=== PATIENT | female | born 1970 | race Caucasian/White ===

== ENCOUNTER 2017-04-18 19:41 | Emergency (ER) | payer OTHER ==
[~2017-04-18] VITALS: Ht 162.6 cm; Wt 57.7 kg
[~2017-04-18 19:41] MED LIST: BENZ100 PO; TUSSSUS2 PO
[2017-04-18 19:49] VITALS: BP 185/113; PULSE 83; RESP 15; TEMP 98.7; O2SAT 98
--- NOTE | 2017-04-18 20:12 | PD ---
Physical Exam Time Seen by Provider: 20:10 Narrative 47yo F c/o high blood pressure times a couple weeks with highest reading today. Left sided cheat pain since last night-constant. Denies SOB, DECKER, blurred vision, and diaphoresis. Not on BP meds. Patient seen in triage. VS reviewed. Awaiting bed placement. Data Data Last Documented VS Vital Signs Date Time Temp Pulse Resp B/P (MAP) Pulse Ox O2 Delivery O2 Flow Rate FiO2 04/18/17 19:49 98.7 83 15 185/113 (137) 98 Room Air MDM Supervised Visit with NAN: Cadence Houston Apr 18, 2017 20:12
[2017-04-18] MEDS ORDERED: RAMIPRIL 5 MG CAP PO ONE (20:30)
[2017-04-18] MEDS ORDERED: ASPIRIN 81 MG CHEW TAB PO ONE (20:30)
[2017-04-18] MEDS ORDERED: SODIUM CHLORIDE 0.9% FLUSH 10 ML FLUSH IVF PRN (20:30)
[2017-04-18 20:33] VITALS: BP_SYST 162; BP_SYST 178; BP_DIAS 94; BP_DIAS 96; PULSE 81; RESP 18; O2SAT 98
[2017-04-18 20:34] VITALS: O2SAT 98
--- NOTE | 2017-04-18 20:38 | PD ---
HPI Chief Complaint: Hypertension Time Seen by Provider: 20:13 Travel History International Travel<30 days: No Contact w/Intl Traveler<30days: No Traveled to known affect area: No History of Present Illness HPI The patient is a 47-year-old female who presents to the emergency department for elevated blood pressure. The patient states she has a history of hypertension, loss 13% body fat several years ago and subsequently went off of her medication at that time, Altace 10 mg. However, the last several weeks the patient has had intermittent headaches, generalized not feeling well, intermittent left-sided chest dullness, and turgor blood pressure earlier today which was elevated. The patient has an appointment in the beginning of April with her primary physician, Dr. Stephens. The patient denies any current headache, shortness breath, nausea, vomiting, or diaphoresis. She does complain of constant left-sided chest ache since last night which has been constant, not worse with exertion. She denies any known history of coronary artery disease. PFSH Past Medical History Narrative Medical Hypertension Past Surgical History Narrative Surgical Tubal ligation, uterine ablation Social History Tobacco Use: No Allergies-Medications (Allergen,Severity, Reaction): Coded Allergies: ciprofloxacin (Verified Allergy, Mild, makes patient sick, 04/18/17) Reported Meds & Prescriptions Reported Meds & Active Scripts Active No Active Prescriptions or Reported Medications Review of Systems Except as stated in HPI: all other systems reviewed are Neg HENT: Positive: Headaches, Lightheadedness Cardiovascular: Positive: Chest Pain or Discomfort Respiratory: No: Shortness of Breath Gastrointestinal: No: Nausea, Vomiting, Abdominal Pain Musculoskeletal: Positive: Weakness Neurologic: No: Dizziness Physical Exam Narrative GENERAL: Awake, alert, very pleasant 27 year-old female who appears her stated age is in no acute respiratory distress. SKIN: Focused skin assessment warm/dry. HEAD: Atraumatic. Normocephalic. EYES: Pupils equal and round. No scleral icterus. No injection or drainage. ENT: No nasal bleeding or discharge. Mucous membranes pink and moist. NECK: Trachea midline. No JVD. CARDIOVASCULAR: Regular rate and rhythm. No murmur appreciated. RESPIRATORY: No accessory muscle use. Clear to auscultation. Breath sounds equal bilaterally. GASTROINTESTINAL: Abdomen soft, non-tender, nondistended. MUSCULOSKELETAL: No obvious deformities. No clubbing. No cyanosis. No edema. NEUROLOGICAL: Awake and alert. No obvious cranial nerve deficits. Motor grossly within normal limits. Normal speech. Nonfocal. Oriented 4. Follows commands without difficulty. PSYCHIATRIC: Appropriate mood and affect; insight and judgment normal. Data Data Last Documented VS Vital Signs Date Time Temp Pulse Resp B/P (MAP) Pulse Ox O2 Delivery O2 Flow Rate FiO2 04/18/17 21:42 79 18 150/87 (108) 97 Room Air 04/18/17 19:49 98.7 Orders Orders Electrocardiogram (04/18/17 20:25) Ckmb (Isoenzyme) Profile (04/18/17 20:25) Complete Blood Count With Diff (04/18/17 20:25) Comprehensive Metabolic Panel (04/18/17 20:25) Troponin I (04/18/17 20:25) Ecg Monitoring (04/18/17 20:25) Bilateral Bp Monitoring (04/18/17 20:25) Iv Access Insert/Monitor (04/18/17 20:25) Oximetry (04/18/17 20:25) Oxygen Administration (04/18/17 20:25) Aspirin Chew (Aspirin Chew) (04/18/17 20:30) Sodium Chloride 0.9% Flush (Ns Flush) (04/18/17 20:30) Ramipril (Altace) (04/18/17 20:30) Labs Laboratory Tests Test 04/18/17 20:30 White Blood Count 7.7 TH/MM3 Red Blood Count 4.66 MIL/MM3 Hemoglobin 13.1 GM/DL Hematocrit 39.4 % Mean Corpuscular Volume 84.5 FL Mean Corpuscular Hemoglobin 28.1 PG Mean Corpuscular Hemoglobin Concent 33.3 % Red Cell Distribution Width 13.1 % Platelet Count 314 TH/MM3 Mean Platelet Volume 7.5 FL Neutrophils (%) (Auto) 63.0 % Lymphocytes (%) (Auto) 27.4 % Monocytes (%) (Auto) 7.3 % Eosinophils (%) (Auto) 1.8 % Basophils (%) (Auto) 0.5 % Neutrophils # (Auto) 4.8 TH/MM3 Lymphocytes # (Auto) 2.1 TH/MM3 Monocytes # (Auto) 0.6 TH/MM3 Eosinophils # (Auto) 0.1 TH/MM3 Basophils # (Auto) 0.0 TH/MM3 CBC Comment DIFF FINAL Differential Comment Blood Urea Nitrogen 16 MG/DL Creatinine 0.70 MG/DL Random Glucose 88 MG/DL Total Protein 7.5 GM/DL Albumin 3.9 GM/DL Calcium Level 8.6 MG/DL Alkaline Phosphatase 53 U/L Aspartate Amino Transf (AST/SGOT) 20 U/L Alanine Aminotransferase (ALT/SGPT) 44 U/L Total Bilirubin 0.3 MG/DL Sodium Level 139 MEQ/L Potassium Level 3.3 MEQ/L Chloride Level 103 MEQ/L Carbon Dioxide Level 29.0 MEQ/L Anion Gap 7 MEQ/L Estimat Glomerular Filtration Rate 90 ML/MIN Total Creatine Kinase 69 U/L Troponin I LESS THAN 0.02 NG/ML MDM Medical Decision Making Medical Screen Exam Complete: Yes Emergency Medical Condition: Yes Medical Record Reviewed: Yes Interpretation(s) EKG reveals normal sinus rhythm with a rate of 77. No ischemic changes or ectopy noted. Laboratory Tests Test 04/18/17 20:30 White Blood Count 7.7 TH/MM3 Red Blood Count 4.66 MIL/MM3 Hemoglobin 13.1 GM/DL Hematocrit 39.4 % Mean Corpuscular Volume 84.5 FL Mean Corpuscular Hemoglobin 28.1 PG Mean Corpuscular Hemoglobin Concent 33.3 % Red Cell Distribution Width 13.1 % Platelet Count 314 TH/MM3 Mean Platelet Volume 7.5 FL Neutrophils (%) (Auto) 63.0 % Lymphocytes (%) (Auto) 27.4 % Monocytes (%) (Auto) 7.3 % Eosinophils (%) (Auto) 1.8 % Basophils (%) (Auto) 0.5 % Neutrophils # (Auto) 4.8 TH/MM3 Lymphocytes # (Auto) 2.1 TH/MM3 Monocytes # (Auto) 0.6 TH/MM3 Eosinophils # (Auto) 0.1 TH/MM3 Basophils # (Auto) 0.0 TH/MM3 CBC Comment DIFF FINAL Differential Comment Blood Urea Nitrogen 16 MG/DL Creatinine 0.70 MG/DL Random Glucose 88 MG/DL Total Protein 7.5 GM/DL Albumin 3.9 GM/DL Calcium Level 8.6 MG/DL Alkaline Phosphatase 53 U/L Aspartate Amino Transf (AST/SGOT) 20 U/L Alanine Aminotransferase (ALT/SGPT) 44 U/L Total Bilirubin 0.3 MG/DL Sodium Level 139 MEQ/L Potassium Level 3.3 MEQ/L Chloride Level 103 MEQ/L Carbon Dioxide Level 29.0 MEQ/L Anion Gap 7 MEQ/L Estimat Glomerular Filtration Rate 90 ML/MIN Total Creatine Kinase 69 U/L Troponin I LESS THAN 0.02 NG/ML Differential Diagnosis Differential diagnosis includes hypertension, hypertensive urgency, hypertensive emergency, acute coronary syndrome, STEMI, intracranial hemorrhage. Narrative Course IV was established, labs are drawn and sent, and the patient was placed on cardiac telemetry monitoring and continuous pulse oximetry monitoring. EKG was ordered and interpreted. The patient was administered Altase 5 mg orally, as she would like to go back on Altase at a lower dose for her elevated blood pressure. The patient is nonfocal on examination no current headache, I do not believe CT of the brain is indicated for intracranial hemorrhage. One troponin was sent to lab, I do not believe the patient has acute cardiac syndrome, her pain has been constant since last night, therefore, troponin should be elevated. The patient's troponin was unremarkable. Potassium is minimally low at 3.3, however, patient is being placed on an SUMMER inhibitor. The patient's blood pressure came down to 140/88. Her symptoms had resolved. Patient be discharged home on all taste 5 mg daily, is advised to follow-up with her primary physician. Return if symptoms worsen or progress. Diagnosis Primary Impression: Hypertension Qualified Codes: I10 - Essential (primary) hypertension Patient Instructions: General Instructions Additional Instructions: Please provide the patient a copy of her labs at discharge. Altase as directed. Return if symptoms worsen or progress. Follow-up with your primary physician as scheduled. Med/Other Pt SpecificInfo: Prescription(s) given Scripts Ramipril (Altace) 5 Mg Cap 5 MG PO DAILY, #30 CAP 1 Refill Prov: Franco Milligan MD 04/18/17 Disposition: DISCHARGE HOME Condition: Stable Franco Milligan MD Apr 18, 2017 20:38
[2017-04-18 21:28] LABS: AUTOMATED NEUTROPHIL # 4.8 TH/MM3 (1.8-7.7); BASOPHIL % 0.5 % (0.0-2.0); EOSINOPHIL # 0.1 TH/MM3 (0-0.4); EOSINOPHIL % 1.8 % (0.0-4.0); HEMATOCRIT 39.4 % (35.0-46.0); HEMO FLAGS DIFF FINAL; LYMPH % 27.4 % (9.0-44.0); LYMPHOCYTE # 2.1 TH/MM3 (1.0-4.8); MEAN CELL VOLUME 84.5 FL (80.0-100.0); MEAN CORPUSCULAR HEMOGLOBIN 28.1 PG (27.0-34.0); MEAN CORPUSCULAR HGB CONC 33.3 % (32.0-36.0); MONO % 7.3 % (0.0-8.0); PLATELET COUNT 314 TH/MM3 (150-450); RED BLOOD COUNT 4.66 MIL/MM3 (4.00-5.30); RED CELL DISTRIBUTION WIDTH 13.1 % (11.6-17.2); WHITE BLOOD COUNT 7.7 TH/MM3 (4.0-11.0)
[2017-04-18 21:42] VITALS: BP 150/87; PULSE 79; RESP 18; O2SAT 97
[2017-04-18 21:45] LABS: ANION GAP 7 MEQ/L (5-15); AST (GOT) 20 U/L (15-37); BLOOD UREA NITROGEN 16 MG/DL (7-18); CHLORIDE 103 MEQ/L (98-107); GLOMERULAR FILTRATION RATE 90 ML/MIN (>89); POTASSIUM 3.3 MEQ/L (3.5-5.1); SODIUM (NA) 139 MEQ/L (136-145)
[2017-04-18 21:47] LABS: ALT (GPT) 44 U/L (10-53)
[2017-04-18 21:50] LABS: ALKALINE PHOSPHATASE 53 U/L (45-117); TOTAL BILIRUBIN ADULT 0.3 MG/DL (0.2-1.0)
[2017-04-18 22:00] LABS: CREATINE KINASE 69 U/L (26-192)
[2017-04-18] MEDS ORDERED: ALTA5CAP4 PO (22:05)
[2017-04-18 22:17] VITALS: BP 140/88; PULSE 81; RESP 18; O2SAT 98
--- NOTE | 2017-04-19 11:17 | EKG ---
Date Performed: 04/18/2017 Time Performed: 20:25:57 PTAGE: 47 years EKG: Sinus rhythm NORMAL ECG NO PREVIOUS TRACING DOCTOR: Stef Ta Interpretating Date/Time 04/19/2017 11:15:15
== END 2017-04-18 22:21 | disposition home or self-care (01) ==
LOC: NEPC 19:41
DX: I10 Essential (primary) hypertension (principal)
CPT/HCPCS: 80053; 82550; 84484; 85025; 93005; 99284